=== PATIENT | female | born 1965 | race Caucasian/White ===

== ENCOUNTER 2017-03-27 11:14 | Day surgery (SDC) | payer OTHER ==
[~2017-03-27] VITALS: Ht 177.8 cm; Wt 97.1 kg
[~2017-03-27 11:14] MED LIST: CADUET5 MG/20 MG PO; LEVEMIR100 UNIT/M SC; METFORMIN500 MG PO; NOVOLOG100 UNIT/M SC; SYNTHROID150 MCG PO; TERBINAFINE250 MG PO
[2017-03-27 14:35] VITALS: BP 138/63
== END 2017-03-27 14:40 | disposition home or self-care (01) | DRG 951 ==
LOC: ENDO 11:14 → ORM 13:15 → ENDO 13:15
PROVIDERS: ATTEND Internal Medicine Gastroenterology
PROC: 0DBK8ZX Excision of Ascending Colon, Via Natural or Artificial Opening Endoscopic, Diagnostic (ICD-10-PCS; principal; 2017-03-27)
PROC: 0DBN8ZX Excision of Sigmoid Colon, Via Natural or Artificial Opening Endoscopic, Diagnostic (ICD-10-PCS; 2017-03-27)
DX: Z12.11 Encounter for screening for malignant neoplasm of colon (principal); Q43.8 Other specified congenital malformations of intestine; D12.2 Benign neoplasm of ascending colon; D12.7 Benign neoplasm of rectosigmoid junction; D12.5 Benign neoplasm of sigmoid colon; K64.4 Residual hemorrhoidal skin tags; K57.30 Diverticulosis of large intestine without perforation or abscess without bleeding; K64.8 Other hemorrhoids; K21.9 Gastro-esophageal reflux disease without esophagitis; F17.210 Nicotine dependence, cigarettes, uncomplicated; I10 Essential (primary) hypertension; E11.9 Type 2 diabetes mellitus without complications; E03.9 Hypothyroidism, unspecified; Z80.0 Family history of malignant neoplasm of digestive organs

== ENCOUNTER 2018-10-20 10:23 | Emergency (ER) | payer SELFPAY ==
[~2018-10-20] VITALS: Ht 177.8 cm; Wt 77.2 kg
[2018-10-20 10:53] VITALS: BP 164/81
== END 2018-10-20 10:55 | disposition home or self-care (01) | DRG 605 ==
LOC: ED 10:23
PROC: 0HQ1XZZ Repair Face Skin, External Approach (ICD-10-PCS; principal; 2018-10-20)
DX: S01.81XA Laceration without foreign body of other part of head, initial encounter (principal); I10 Essential (primary) hypertension; E11.9 Type 2 diabetes mellitus without complications; E03.9 Hypothyroidism, unspecified; F17.210 Nicotine dependence, cigarettes, uncomplicated; W01.0XXA Fall on same level from slipping, tripping and stumbling without subsequent striking against object, initial encounter; Z79.4 Long term (current) use of insulin